=== PATIENT | female | born 1995 | race Caucasian/White ===

== ENCOUNTER 2024-04-17 08:57 | Emergency (ER) | payer OTHER, SELFPAY ==
[2024-04-17] VITALS (7 sets, daily range): BP systolic 169–182; BP diastolic 104–119; PULSE 110–124; RESP 20; TEMP 37; O2SAT 96–99; BMI 26.6
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
[2024-04-17] MEDS: LORazepam 1 MG TABLET PO (09:50)
== END 2024-04-17 10:46 | disposition home or self-care (01) ==
PROVIDERS: Emergency Provider Emergency Medicine
DX: T76.21XA Adult sexual abuse, suspected, initial encounter (principal); F41.9 Anxiety disorder, unspecified
CPT/HCPCS: 99282; 99284; A9270